=== PATIENT | female | born 1995 | race Caucasian/White ===

== ENCOUNTER → 2017-02-20 | Outpatient (CLI) | payer BC ==
[~2017-02-20] MED LIST: BCPILLS PO; MULT-506 PO; ONDA4TAB46 PO; SUMA25TA12 PO
--- NOTE | 2017-02-20 10:07 | DIAGNOSTIC IMAGING REPORT ---
Thyroid ultrasonography CLINICAL HISTORY: R94.6 Abnormal thyroid blood test solitary left lobe thyroid nodule COMPARISON STUDY: 02/23/2016 FINDINGS: The right lobe of the thyroid measures 5.3 x 1.2 x 1.4 cm. The left lobe measures 8.0 x 1.7 x 1.0 cm. Both lobes of thyroid are slightly hypervascular. There is a stable isoechoic wider than tall circumscribed lower pole left lobe nodule measuring 12 mm in long axis. IMPRESSION: No change in the size the 12 mm lower pole left lobe thyroid nodule. Electronically signed by: Jose Casper M.D. 02/20/2017 10:06 AM Dictated Date/Time: 02/20/2017 10:04 AM
== END | disposition home or self-care (01) ==
LOC: C.ULTR 09:41
PROVIDERS: ATTEND Physician Assistant
DX: R94.6 Abnormal results of thyroid function studies (principal)

== ENCOUNTER → 2017-11-22 | Outpatient (CLI) | payer OTHER | END | disposition home or self-care (01) | LOC: C.LAB1850 10:59 | PROVIDERS: ATTEND Physician Assistant | DX: E03.9 Hypothyroidism, unspecified (principal) ==

== ENCOUNTER → 2018-01-05 | Outpatient (CLI) | payer OTHER | LOC: C.LAB1850 16:07 | PROVIDERS: ATTEND Internal Medicine Endocrinology, Diabetes & Metabolism | DX: E03.9 Hypothyroidism, unspecified (principal) ==

== ENCOUNTER → 2018-01-24 | Outpatient (CLI) | payer OTHER | END | disposition home or self-care (01) | LOC: C.PAPS 11:35 | PROVIDERS: ATTEND Obstetrics & Gynecology | DX: Z12.4 Encounter for screening for malignant neoplasm of cervix (principal) ==

== ENCOUNTER → 2018-01-24 | Outpatient (CLI) | payer OTHER | END | disposition home or self-care (01) | LOC: C.LABSPEC 10:56 | PROVIDERS: ATTEND Obstetrics & Gynecology | DX: Z11.3 Encounter for screening for infections with a predominantly sexual mode of transmission (principal) ==

== ENCOUNTER → 2018-01-27 | Outpatient (CLI) | payer OTHER | END | disposition home or self-care (01) | LOC: C.LAB1850 08:18 | PROVIDERS: ATTEND Obstetrics & Gynecology | DX: N91.2 Amenorrhea, unspecified (principal) ==

== ENCOUNTER 2019-04-26 03:59 | Inpatient (IN) ==
[2019-04-26] MEDS ORDERED: OXYTOCIN 30 UNITS/500 ML BAG IV PRN ×3 (06:36→21:44)
[2019-04-26] MEDS ORDERED: PENICILLIN G POTASSIUM 6 MU in DEXTROSE 5% 250 ML IV STA (06:36)
--- NOTE | 2019-04-26 06:52 | History & Physical Report ---
Date of Service April 26, 2019 Assessment & Plan (1) Normal labor: I think she has demonstrated change consistent with early labor. Fetus reassuring. admit. Expectant management. (2) Group beta Strep positive: pcn History of Present Illness Chief Complaint: Patient is a 23yowf wtih iup at 39 6/7 weeks who presents to labor and delivery complaining of contractions. no lof/vb. +fm. GBS positive. complicated by hypothroidism. labs--A+/ab-/ pap nl/ri/rpr nr/hepb-/hiv-/gc/ct-/neg panormam, neg aftp/gtt x 2 nl/gbs positive Primary Care Provider: Nahum Sotomayor MD Allergies Allergy/AdvReac Type Severity Reaction Status Date / Time No Known Allergies Allergy Mild Verified 04/24/19 19:57 Home Medications Home Medications Medication Instructions Recorded Confirmed Type levothyroxine 88 mcg tablet 88 mcg PO .TAKE 1 TABLET DAILY 04/12/19 04/26/19 History #30 tab -ifdh fum-folic ac-om3 75 tab PO DAILY 04/12/19 04/26/19 History Patient History Social History Preferred Language: [place] Citizen Communication Ability: Effective 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 Beliefs That Will Affect Care: None marital status: Current Living Situation: Spouse Current Living Situation Comment: house with Other Information That Helps Us Care for You: No Feels Safe at Home: Yes Safety Concerns: Feels Safe At This Time Smoking Status: Never smoker Tobacco Type: cigarettes ; Do You Dip or Chew Tobacco: No ; Second Hand Exposure: No ; Hx Alcohol Use: No Hx Substance Use: No OB History g 1 present Review of Systems All systems reviewed & are unremarkable except as noted in HPI & below Physical Exam Constitutional: WD/WN, vitals as above Gastrointestinal (Abdomen): soft, gravid, nt Genitourinary: cx was 1/80/-3 in the office and made change from 2/90/-2 to 3+/90/-2 toco--q 3-5 min efm--120s with mod variability, accels to 160s, no decels Results & Data Vital Signs (Past 12 Hours) Vital Signs Temp Pulse Resp BP 04/26/19 05:28 82 117/66 04/26/19 04:22 78 112/68 04/26/19 04:17 36.9 C 78 18 112/68
[2019-04-26 07:12] LABS: Hematocrit (blood only) 35.4 % (37-47); Hemoglobin 12.3 g/dL (12.0-16.0); Mean Corpuscular Hgb Conc 34.7 g/dL (32-36); Mean Platelet Volume 9.3 fL (7.4-10.4); Platelet Count 239 K/uL (130-400); RDW Coefficient of Variation 13.8 % (11.5-14.5); RDW Standard Deviation 45.4 fL (36.4-46.3); Red Blood Count 3.89 M/uL (4.2-5.4); White Blood Count 10.82 K/uL (4.8-10.8)
[2019-04-26] MEDS: LEVOTHYROXINE SODIUM 88 MCG TABLET PO SCH (07:31)
[2019-04-26] MEDS: LACTATED RINGER'S 1,000 ML IV PRN ×3 (07:35→13:47)
--- NOTE | 2019-04-26 09:40 | Labor Progress Brief Note ---
Date of Service April 26, 2019 Subjective Late entry, feeling some ctx. Assessment & Plan (1) Encounter for supervision of normal first : (2) Group beta Strep positive: will see how arom helps labor pattern, intermittent monitoring. c/w pcn. categ 1 Physical Exam Constitutional: WD/WN, vitals as above Genitourinary: Manual OB Exam: + cervical dilation 4 cm, + cervical effacement 100%, + station -2 and + amniotic fluid (AROM) clear OB Exam Monitor Tracing: + external FHT monitor used, + external uterine monitor used (q5), + category I and + normal FHT variability Results & Data Vital Signs (Past 12 Hours) Vital Signs Temp Pulse Resp BP 04/26/19 09:09 99.0 F 81 20 112/60 04/26/19 06:59 99.0 F 84 20 119/72 04/26/19 05:28 82 117/66 04/26/19 04:22 78 112/68 04/26/19 04:17 98.4 F 78 18 112/68
[2019-04-26] MEDS: PENICILLIN G POTASSIUM 3 MU in DEXTROSE 5% 100 ML IV PRN ×3 (11:20→19:05)
--- NOTE | 2019-04-26 12:26 | Labor Progress Brief Note ---
Date of Service April 26, 2019 Subjective Reason For Note: Routine Evaluation feeling some stronger ctx. Assessment & Plan (1) Encounter for supervision of normal first : (2) Group beta Strep positive: c/w pcn. no evid of progress in labor. rec pitocin. pt agrees. Physical Exam Constitutional: WD/WN, vitals as above Genitourinary: Manual OB Exam: + cervical dilation (no change. ) OB Exam Monitor Tracing: + external FHT monitor used (130 mod variability, reactive ), + external uterine monitor used (q3) and + category I Results & Data Vital Signs (Past 12 Hours) Vital Signs Temp Pulse Resp BP 04/26/19 10:59 98.6 F 80 20 123/77 04/26/19 09:09 99.0 F 81 20 112/60 04/26/19 06:59 99.0 F 84 20 119/72 04/26/19 05:28 82 117/66 04/26/19 04:22 78 112/68 04/26/19 04:17 98.4 F 78 18 112/68
[2019-04-26] MEDS ORDERED: ePHEDrine sulfate 50 MG/ML AMP ONE (13:11)
[2019-04-26] MEDS ORDERED: BUPIVACAINE 0.25% 30 ML VIAL ONE (13:11)
[2019-04-26] MEDS ORDERED: fentaNYL 2MCG/ML ROPIV 1.25MG/ML 100 ML BAG EPI ONE (13:12)
[2019-04-26] MEDS ORDERED: fentaNYL citrate 100 MCG/2 ML VIAL ONE (13:12)
[2019-04-26] MEDS ORDERED: NALOXONE HCL 0.4 MG/1 ML VIAL/CARP IV PRN (13:43)
[2019-04-26] MEDS ORDERED: DiphenhydrAMINE HCL 50 MG/ML VIAL IV PRN (13:43)
[2019-04-26] MEDS ORDERED: ONDANSETRON INJ 2 MG/ML 2 ML VIAL IV PRN (13:43)
[2019-04-26] MEDS ORDERED: NALBUPHINE HCL INJ 10 MG/ML AMP IV PRN (13:43)
[2019-04-26] MEDS ORDERED: ePHEDrine sulfate 50 MG/ML AMP IV PRN (13:43)
[2019-04-26] MEDS ORDERED: fentaNYL 2MCG/ML ROPIV 1.25MG/ML 100 ML BAG EPI PRN (13:43)
[2019-04-26] MEDS ORDERED: NALOXONE HCL 1 MG in SODIUM CHLORIDE 0.9% 1000ML 1,000 ML IV PRN (13:43)
--- NOTE | 2019-04-26 13:47 | Anesthesiology Consultation ---
Date of Service April 26, 2019 Assessment & Plan Chart Review Chart Review: Patient NOT seen in Pre Admission Testing and Acceptable Risk for Labor Epidural Consults Requested none ASA ASA2 Proposed Anesthesia Anesthesia Type: Labor Epidural and CSE Risk / Benefits Reviewed With: PT / POA / Parent / Guardian, Accepts Plan and Informed Consent Obtained History Height/Weight Height: 5 ft 2 in Weight: 85.488 kg Allergies Allergy/AdvReac Type Severity Reaction Status Date / Time No Known Allergies Allergy Mild Verified 04/24/19 19:57 Medications Home Medications Medication Instructions Recorded Confirmed Last Taken levothyroxine 88 mcg tablet 88 mcg PO .TAKE 1 TABLET DAILY 04/12/19 04/26/19 04/25/19 06:00 #30 tab -utml fum-folic ac-om3 75 tab PO DAILY 04/12/19 04/26/19 04/25/19 21:00 Active Medications Generic Name Dose Route Start Last Admin Trade Name Freq PRN Reason Stop Dose Admin Lactated Ringer's 1,000 mls @ 125 mls/hr 04/26/19 06:36 04/26/19 13:09 Lr IV 04/28/19 06:35 999 mls/hr .Q8H PRN Administration L&D Protocol Protocol Penicillin G Potassium 3 mu/ 106 mls @ 100 mls/hr 04/26/19 06:36 04/26/19 11:20 Dextrose IV 04/27/19 06:35 100 mls/hr Q4H PRN Administration Give until delivery Oxytocin 30 units in 500 mls @ 3 mls/hr 04/26/19 12:26 04/26/19 13:09 Pitocin IV 04/28/19 12:25 0.18 units/hr .Q24H PRN 3 mls/hr Labor Induction/Augmentation Titration Protocol 0.18 UNITS/HR Levothyroxine Sodium 88 mcg 04/26/19 07:30 04/26/19 07:31 Synthroid PO 05/26/19 07:29 88 mcg DAILYBB ERICA Administration NPO Date Last Intake of Fluids: 04/26/19 Time Last Intake of Fluids: 10:00 Date Last Intake of Solids: 04/25/19 Time Last Intake of Solids: 19:30 Past Medical History Medical History Depression with anxiety no meds Jacqueline's thyroiditis taking levothyroxine 88mcg daily Exercise / Class Metabolic Activity II 4-5 Yardwork/Stairs/Walk up hill Past Family History Family History Father Asthma Brother Asthma Grandmother (Paternal) Breast cancer Ovarian cancer Grandfather (Paternal) Colorectal cancer Mother Hypothyroidism Goiter and Thyroid Nodule Past Surgical History Surgical History S/P wisdom tooth extraction at age 15 Past Anesthesia History No Hx of Anesthesia Complications and No Family Hx of Anesthesia Complications History of PONV No Hx of PONV and No Hx of Motion Sickness Social History Smoking Status: Never smoker tobacco type: cigarettes Do You Dip or Chew Tobacco: No Hx Alcohol Use: No Hx Substance Use: No substance use type: does not use Review of Systems no chest pain or sob Physical Exam Vital Signs Last Vital Signs Temp 36.9 C 04/26/19 13:39 Pulse 90 04/26/19 13:39 Resp 20 04/26/19 13:39 BP 127/77 04/26/19 13:39 Pulse Ox 99 04/26/19 13:39 ENMT Mouth: no TMJ abnormality Thyromental Distance: > or= 3.5 Finger Breadths Mallampati Class: II Neck normal visual inspection Respiratory normal respiratory effort Auscultation: lungs clear to auscultation bilaterally Cardiovascular Rate/Rhythm: regular rate and regular rhythm Musculoskeletal Spine: normal cervical ROM Neurologic moves all extremities Psychiatric Orientation: alert and oriented x 3 Testing Laboratory Results 04/26/19 07:01
--- NOTE | 2019-04-26 15:28 | Labor Progress Brief Note ---
Date of Service April 26, 2019 Subjective Reason For Note: Requested By RN pt feels increased pain. pit at 5, ctx getting more regular. Assessment & Plan (1) Normal labor: (2) Group beta Strep positive: begin 2nd stage. pcn for gbs. categ 1 fhts. Physical Exam Constitutional: WD/WN, vitals as above Genitourinary: Manual OB Exam: + cervical dilation 10 cm, + cervical effacement 100% and + station + 2 OB Exam Monitor Tracing: + external FHT monitor used (115 mod variability, early decels), + external uterine monitor used (q3) and + category I Results & Data Vital Signs (Past 12 Hours) Vital Signs Temp Pulse Resp BP Pulse Ox 04/26/19 15:24 76 99 04/26/19 15:19 55 L 117/65 96 04/26/19 15:14 68 97 04/26/19 15:10 63 94 04/26/19 15:09 60 96 04/26/19 15:05 66 107/57 L 04/26/19 15:04 65 96 04/26/19 14:59 71 96 04/26/19 14:54 61 98 04/26/19 14:49 68 104/57 L 96 04/26/19 14:44 58 L 96 04/26/19 14:39 62 96 04/26/19 14:34 67 112/57 L 98 04/26/19 14:32 67 105/50 L 04/26/19 14:30 20 04/26/19 14:29 67 96 04/26/19 14:25 70 105/53 L 04/26/19 14:24 75 96 04/26/19 14:19 77 114/57 L 96 04/26/19 14:17 75 112/57 L 04/26/19 14:15 76 20 108/55 L 04/26/19 14:14 78 97 04/26/19 14:13 83 103/59 L 04/26/19 14:11 98.4 F 80 98/54 L 04/26/19 14:10 18 04/26/19 14:09 88 96 04/26/19 14:04 83 96 04/26/19 14:01 68 20 111/64 04/26/19 13:59 71 98 04/26/19 13:54 80 99 04/26/19 13:49 85 100 04/26/19 13:44 78 98 04/26/19 13:39 98.4 F 90 20 127/77 99 04/26/19 13:04 81 120/85 04/26/19 12:25 99.0 F 74 20 120/70 04/26/19 10:59 98.6 F 80 20 123/77 04/26/19 09:09 99.0 F 81 20 112/60 04/26/19 06:59 99.0 F 84 20 119/72 04/26/19 05:28 82 117/66 04/26/19 04:22 78 112/68 04/26/19 04:17 98.4 F 78 18 112/68
[2019-04-26] MEDS ORDERED: ACETAMINOPHEN 325 MG TAB PO PRN (21:44)
[2019-04-26] MEDS ORDERED: HYDROCORTISONE ACETATE 25 MG SUPP PR PRN (21:44)
[2019-04-26] MEDS ORDERED: BISACODYL 10 MG SUPP PR PRN (21:44)
[2019-04-26] MEDS ORDERED: DIPHTHERIA/TETANUS/PERTUSSIS 0.5 ML SYR/VIAL IM ONE (21:44)
[2019-04-26] MEDS ORDERED: SUPERCREAM 0.870% 15 GM JAR EXT PRN (21:44)
[2019-04-26] MEDS ORDERED: BENZOCAINE 20% AER SPR 82.5 GM CAN EXT PRN (21:44)
[2019-04-26 21:48] LABS: Base Excess Cord Venous Blood -5.8 mEq/L (-7.7-1.9); Cord Venous Blood HCO3 19 mmol/L (18.4-26.8); Cord Venous Blood PCO2 35 mmHg (30.4-57.2); Cord Venous Blood PO2 32 mmHg (14.1-43.3); Cord Venous Blood pH 7.35 (7.20-7.44)
[2019-04-26] MEDS ORDERED: IBUPROFEN 600 MG TAB PO ONE (21:54)
--- NOTE | 2019-04-26 22:44 | Delivery Summary ---
DATE OF OPERATION: 04/26/2019 PROCEDURE: Normal spontaneous vaginal delivery with right vaginal sidewall laceration repair. SURGEON: Amol Pardo MD. PREOPERATIVE DIAGNOSES: 1. Single intrauterine at 39 weeks 6 days gestational age. 2. Group B Streptococcus positive. 3. Hypothyroidism. 4. Labor. POSTOPERATIVE DIAGNOSES: 1. Single intrauterine at 39 weeks 6 days gestational age. 2. Group B Streptococcus positive. 3. Hypothyroidism. 4. Labor. 5. Status post delivery. 6. Meconium stained fluid. ESTIMATED BLOOD LOSS: 400 mL. COMPLICATIONS: None. FINDINGS: A viable male infant with weight and Apgars pending. FLUIDS: Continuous lactated Ringer's. URINE OUTPUT: Not measured. INDICATIONS: Yue is a 23-year-old G1, P0, admitted at 39 weeks 6 days gestational age in labor. The patient was GBS positive. The patient initially presented in labor at 2 cm dilated, 90% effaced, -2 station. She progressed to 3 cm dilated, 90% effaced, -2 station, was admitted for labor. On reevaluation several hours later, the patient was noted to be 4 cm dilated, 100% effaced, -2 station. She underwent artificial rupture of membranes at that time. The patient continued to progress in labor and on reevaluation, was noted to have no cervical change and was started on oxytocin per regular protocol. The patient continued to progress in labor and over time progressed to complete-complete +2 station. The patient labored down for approximately 1 hour, at which time she began to push and pushed for approximately 3 hours to achieve delivery. DELIVERY NOTE: The patient progressed to 10 cm dilated, 100% effaced, +2 station, pushed over an intact perineum with epidural anesthesia and delivered a viable male with weight and Apgars pending. Head of the delivered in DANISH position, rest into right transverse. Bicorn was noted. On attempt to deliver the shoulder, the shoulder did not initially deliver, but did deliver without any significant shoulder dystocia. Remainder of the body progressed slowly through maternal pushing secondary to size. There was noted to be meconium-stained fluid at the time of delivery. The baby was noted to be floppy soon after delivery and the cord was immediately clamped and cut and the delivered to the pediatric team for evaluation. Attention was then turned to the mom. Cord segment and cord blood was obtained. Attention was then turned to deliver the placenta, which was delivered intact, 3-vessel cord, with gentle cord traction. On inspection of vagina, perineum and cervix, there was noted to be a right vaginal laceration, which was repaired with 3-[address] continuous running stitch and there was noted to be a right labia, which repaired with interrupted stitch of 3-0 Vicryl on a SH. Needle, sponge and instrument counts were correct at the completion of the case with mother and stable in immediate post-delivery period. I attest to the content of the Intraoperative Record and any orders documented therein. Any exception s are noted below.
--- NOTE | 2019-04-27 00:05 | Anesthesia Procedure Note ---
Date of Service April 27, 2019 Anesthesia Post Epidural Note Vital Signs Vital Signs: Temp Pulse Resp BP Pulse Ox 37.9 C H 100 H 18 108/60 97 04/26/19 21:04 04/27/19 00:04 04/26/19 23:34 04/27/19 00:04 04/26/19 20:44 Pain Intensity Bilateral Abdomen: Pain Intensity: 0 Head: Pain Intensity: 3 Notes Mental Status: alert / awake / arousable and participated in evaluation Nausea / Vomiting: adequately controlled Pain: adequately controlled Airway Patency, RR, SpO2: stable & adequate BP & HR: stable & adequate Hydration State: stable & adequate Neuraxial Anesthesia: was administered and sensory block is resolving Anesthetic Complications: no major complications apparent and Pt Satisfied with anesthetic care Epidural: Removed without complications and With tip intact
[2019-04-27] MEDS: LEVOTHYROXINE SODIUM 88 MCG TABLET PO SCH (07:11)
[2019-04-27 07:35] LABS: Hematocrit (blood only) 29.2 % (37-47); Hemoglobin 10.2 g/dL (12.0-16.0); Mean Corpuscular Hgb Conc 34.9 g/dL (32-36); Mean Corpuscular Volume 91.3 fL (80-100); Mean Platelet Volume 9.4 fL (7.4-10.4); Platelet Count 210 K/uL (130-400); RDW Coefficient of Variation 13.7 % (11.5-14.5); RDW Standard Deviation 45.9 fL (36.4-46.3); White Blood Count 15.83 K/uL (4.8-10.8)
--- NOTE | 2019-04-27 07:49 | Obstetrical Progress Note ---
Date of Service <Vanda Jackson MD - Last Filed: 04/27/19 07:49> April 27, 2019 Assessment & Plan <Vanda Jackson MD - Last Filed: 04/27/19 07:49> (1) Group beta Strep positive: (2) Hypothyroid in , antepartum: (3) Encounter for care and examination after delivery: PPD1 after on 04/26. complicated by GBS+ status and hypothyroidism (jocy's). Encouraged ambulation. Currently on normal diet, tolerating well. Some burning on urination. Improving well. Will continue to monitor vitals, labs, consider discharge tomorrow if still improving and having no issues. Subjective <Vanda Jackson MD - Last Filed: 04/27/19 07:49> Ambulation: ambulating normally (not yet ambulating) Voiding: no voiding problems Passing Gas:: Yes Diet Tolerance:: regular diet Feeding Type:: breast feeding Current Pain Level(1-10): 3 No passing gas, BM yet. Hasn't ambulated outside of room. Constitutional: + fatigue; no fever and no chills Respiratory: no cough and no dyspnea No shortness of breath Cardiovascular: + edema; no chest pain, no syncope and no calf pain Breast: no breast pain Gastrointestinal: + cramping; no abdominal pain, no nausea, no vomiting, no constipation and no diarrhea/loose stools Genitourinary (female): + dysuria; no difficulty urinating Neurologic: no headache(s) Physical Exam <Vanda Jackson MD - Last Filed: 04/27/19 07:49> Constitutional well developed and well nourished Respiratory normal respiratory effort; no respiratory distress, no labored breathing and no cough Auscultation: no crackles, no rales, no rhonchi and no wheezes Cardiovascular Rate/Rhythm: regular rate and regular rhythm Heart Sounds: no gallop, no murmur and no cardiac rub Extremities: + pedal edema Gastrointestinal (Abdomen) Inspection/Auscultation: + abdomen distended and normal bowel sounds Percussion/Palpation: + abdomen tender and abdomen soft; no guarding Genitourinary Uterus firm, palpable at umbilicus, some tenderness to palpation. Results & Data <Vanda Jackson MD - Last Filed: 04/27/19 07:49> Vital Signs (Past 12 Hours) Vital Signs Temp Pulse Pulse Resp BP BP Pulse Ox 04/27/19 04:50 37.1 C 71 16 96/57 L 97 04/27/19 00:30 37.1 C 83 18 106/67 96 04/27/19 00:04 100 H 108/60 04/26/19 23:49 101/60 04/26/19 23:34 96 H 18 104/58 L 04/26/19 23:19 101 H 109/59 L 04/26/19 23:04 96 H 107/59 L 04/26/19 22:49 86 113/59 L 04/26/19 22:34 77 20 116/56 L 04/26/19 22:19 99 H 119/55 L 04/26/19 22:04 86 20 118/59 L 04/26/19 21:49 96 H 20 124/63 04/26/19 21:35 92 H 103/55 L 04/26/19 21:34 20 04/26/19 21:19 89 20 108/63 04/26/19 21:04 37.9 C H 69 20 102/58 L 04/26/19 20:49 96 H 100/54 L 04/26/19 20:44 98 H 97 04/26/19 20:39 125 H 97 04/26/19 20:38 93 H 85 L 04/26/19 20:34 143 H 93 04/26/19 20:30 20 04/26/19 20:29 126 H 89 L 04/26/19 20:24 113 H 95 04/26/19 20:21 123 H 111/59 L 04/26/19 20:19 119 H 92 04/26/19 20:15 122 H 84 L 04/26/19 20:14 126 H 95 04/26/19 20:09 127 H 85 L 04/26/19 20:06 116 H 113/53 L 04/26/19 20:04 122 H 89 L 04/26/19 20:00 38.5 C H 22 04/26/19 19:59 137 H 94 04/26/19 19:57 119 H 89 L 04/26/19 19:54 118 H 96 04/26/19 19:52 126 H 85 L 04/26/19 19:50 129 H 112/56 L 04/26/19 19:49 124 H 84 L 04/26/19 19:46 120 H 94 <Amol Pardo MD - Last Filed: 04/27/19 08:52> Co-Signing Physician Notes Patient seen and evaluated and agree with the above findings and plan. Routine care
[2019-04-27] MEDS: IBUPROFEN 600 MG TAB PO PRN ×2 (09:20→19:29)
[2019-04-27] MEDS: DOCUSATE SODIUM 100 MG CAP PO SCH ×2 (09:20→19:29)
[2019-04-27] MEDS: PRENATAL VITAMIN 1 TAB PO SCH (09:20)
[2019-04-27] MEDS ORDERED: BISACODYL 5 MG TABEC PO SCH (20:00)
--- NOTE | 2019-04-28 05:15 | Obstetrical Progress Note ---
Date of Service April 28, 2019 Assessment & Plan (1) Encounter for care and examination after delivery: stable, routine care. f/u 6 wks pp check, instructions reviewed. Day #:: 2 Subjective Ambulation: ambulating normally Voiding: no voiding problems Diet Tolerance:: regular diet Lochia:: Small Feeding Type:: breast feeding denies pain, no complaints. trying to get used to nursing Physical Exam Constitutional WD/WN, vitals as above Respiratory normal respiratory effort, lungs clear to auscultation Cardiovascular Rate/Rhythm: regular rate and regular rhythm Gastrointestinal (Abdomen) Inspection/Auscultation: abdomen normal to inspection Percussion/Palpation: abdomen soft fundus firm 2 cm below umbilicus Musculoskeletal nt calves. Neurologic grossly normal Psychiatric A+Ox3, euthymic affect Results & Data Vital Signs (Past 12 Hours) Vital Signs Temp Pulse Resp BP Pulse Ox 04/27/19 23:10 97.9 F 63 16 107/66 98 04/27/19 19:35 98.6 F 91 H 18 112/70 97
[2019-04-28 06:13] LABS: Hematocrit (blood only) 26.5 % (37-47); Hemoglobin 9.1 g/dL (12.0-16.0)
[2019-04-28] MEDS: LEVOTHYROXINE SODIUM 88 MCG TABLET PO SCH (06:30)
[2019-04-28] MEDS: DOCUSATE SODIUM 100 MG CAP PO SCH (08:36)
[2019-04-28] MEDS: IBUPROFEN 600 MG TAB PO PRN (08:36)
[2019-04-28] MEDS: PRENATAL VITAMIN 1 TAB PO SCH (08:36)
== END 2019-04-28 14:30 | disposition home or self-care (01) | DRG 807 ==
LOC: OPB 03:59 → 4S1 04:02 → 4S2 04-27 01:06

== ENCOUNTER 2021-04-11 03:53 | Inpatient (IN) ==
[2021-04-11] MEDS ORDERED: OXYTOCIN 30 UNITS/500 ML BAG IV PRN ×2 (04:18→11:02)
[2021-04-11] MEDS: LACTATED RINGER'S 1,000 ML IV PRN ×2 (04:30→05:43)
[2021-04-11] MEDS ORDERED: SODIUM CHLORIDE 0.9% INJ 10 ML VIAL ONE (04:36)
[2021-04-11] MEDS ORDERED: BUPIVACAINE 0.25% 30 ML VIAL ONE (04:36)
[2021-04-11] MEDS ORDERED: ePHEDrine sulfate 50 MG/ML AMP ONE (04:36)
[2021-04-11] MEDS ORDERED: fentaNYL citrate 100 MCG/2 ML VIAL ONE (04:37)
[2021-04-11] MEDS ORDERED: fentaNYL 2MCG/ML ROPIVACAINE 1.25MG/ML 100 ML BAG EPI ONE (04:37)
[2021-04-11 04:40] LABS: Hematocrit (blood only) 37.3 % (37-47); Hemoglobin 12.7 g/dL (12.0-16.0); Mean Corpuscular Hemoglobin 31.8 pg (25-34); Mean Corpuscular Volume 93.3 fL (80-100); Mean Platelet Volume 8.7 fL (7.4-10.4); Platelet Count 326 K/uL (130-400); RDW Coefficient of Variation 13.5 % (11.5-14.5); RDW Standard Deviation 46.3 fL (36.4-46.3); White Blood Count 11.68 K/uL (4.8-10.8)
[2021-04-11] MEDS ORDERED: fentaNYL 2MCG/ML ROPIVACAINE 1.25MG/ML 100 ML BAG EPI PRN (05:38)
[2021-04-11] MEDS ORDERED: NALOXONE HCL 0.4 MG/1 ML VIAL/CARP IV PRN (05:38)
[2021-04-11] MEDS ORDERED: diphenhydrAMINE 50 MG/ML VIAL IV PRN (05:38)
[2021-04-11] MEDS ORDERED: NALOXONE HCL 1 MG in SODIUM CHLORIDE 0.9% 1000ML 1,000 ML IV PRN (05:38)
[2021-04-11] MEDS ORDERED: ePHEDrine sulfate 50 MG/ML AMP IV PRN (05:38)
[2021-04-11] MEDS ORDERED: NALBUPHINE HCL INJ 10 MG/ML AMP IV PRN (05:38)
--- NOTE | 2021-04-11 05:38 | Anesthesiology Consultation ---
Date of Service April 11, 2021 Assessment & Plan (1) Encounter for pre-operative examination: Chart Review Chart Review: Patient NOT seen in Pre Admission Testing and Acceptable Risk for Labor Epidural Consults Requested none ASA ASA2 Proposed Anesthesia Anesthesia Type: Labor Epidural Risk / Benefits Reviewed With: PT / POA / Parent / Guardian, Accepts Plan and Informed Consent Obtained History Height/Weight Height: 5 ft 3 in Weight: 78.925 kg Allergies Allergy/AdvReac Type Severity Reaction Status Date / Time No Known Allergies Allergy Mild Verified 04/05/21 08:54 Medications Home Medications Medication Instructions Recorded Confirmed Last Taken docusate sodium 100 mg capsule 100 mg PO PM 02/16/21 04/11/21 04/10/21 (Colace) psyllium husk 0.52 gram capsule 0.52 g PO QDL cap 02/16/21 04/11/21 04/10/21 (Metamucil) levothyroxine 88 mcg tablet 88 mcg PO QAM 03/08/21 04/11/21 04/10/21 breast pump #1 ea 03/09/21 04/05/21 Unknown vits,calcium 91-iron 28 1 pkg PO 04/11/21 04/10/21 mg-folic 975 mcg-dha 200 mg oral pack ( + DHA) Active Medications Generic Name Dose Route Start Last Admin Trade Name Freq PRN Reason Stop Dose Admin Lactated Ringer's 1,000 mls @ 125 mls/hr 04/11/21 04:18 04/11/21 04:30 Lr IV 04/13/21 04:17 999 mls/hr .Q8H PRN Administration L&D Protocol Protocol Past Medical History Medical History Depression with anxiety no meds Group beta Strep positive Jacqueline's thyroiditis taking levothyroxine 88mcg daily Exercise / Class Metabolic Activity II 4-5 Yardwork/Stairs/Walk up hill Past Family History Family History Father Asthma Brother Asthma Grandmother (Paternal) Breast cancer Ovarian cancer Grandfather (Paternal) Colorectal cancer Mother Hypothyroidism Goiter and Thyroid Nodule Past Surgical History Surgical History S/P wisdom tooth extraction at age 15 Past Anesthesia History No Hx of Anesthesia Complications and No Family Hx of Anesthesia Complications History of PONV No Hx of PONV and No Hx of Motion Sickness Social History Smoking Status: Never smoker tobacco type: cigarettes Hx Alcohol Use: No Hx Substance Use: No substance use type: does not use Physical Exam Vital Signs Last Vital Signs Temp 36.7 C 04/11/21 04:13 Pulse 83 04/11/21 05:37 Resp 18 04/11/21 04:13 BP 108/62 04/11/21 05:37 Pulse Ox 92 04/11/21 05:32 ENMT Mouth: no dentition abnormality Thyromental Distance: > or= 3.5 Finger Breadths Mallampati Class: II Neck normal visual inspection Respiratory normal respiratory effort Auscultation: lungs clear to auscultation bilaterally Cardiovascular Rate/Rhythm: regular rate and regular rhythm Psychiatric Orientation: alert Testing Laboratory Results 04/11/21 04:33
[2021-04-11] MEDS ORDERED: ONDANSETRON INJ 2 MG/ML 2 ML VIAL IV PRN ×2 (07:06→07:07)
[2021-04-11] MEDS ORDERED: ONDANSETRON INJ 2 MG/ML 2 ML VIAL ONE (07:07)
--- NOTE | 2021-04-11 10:58 | Delivery Summary ---
Vaginal Delivery Summary Date of Service April 11, 2021 Vaginal Delivery Summary and 2nd Degree LAC Patient presented in labor requested epidural heart rate category 1 she progressed to fully dilated artificial rupture of membranes was performed for clear fluid she pushed a baby in occiput posterior position on delivery fluid was clear no nuchal cord mouth and nares suctioned baby was delivered with gentle traction no excessive force live vigorous female cord blood o btained placenta removed with gentle traction IV Pitocin started second-degree tear repaired with 3-0 Vicryl estimated blood loss 250 milliliters [facility] Vaginal Delivery Charge Vaginal Delivery Codes: 61222 global code for the antepartum, delivery, and post- Delivery Type Details: and 2nd Degree LAC
[2021-04-11] MEDS ORDERED: DIPHTHERIA/TETANUS/PERTUSSIS 0.5 ML SYR/VIAL IM ONE (11:02)
[2021-04-11] MEDS ORDERED: SUPERCREAM 0.870% 15 GM JAR EXT PRN (11:02)
[2021-04-11] MEDS ORDERED: bisacodyL 10 MG SUPP PR PRN (11:02)
[2021-04-11] MEDS ORDERED: ACETAMINOPHEN 325 MG TAB PO PRN (11:02)
[2021-04-11] MEDS ORDERED: BENZOCAINE 20% AER SPR 82.5 GM CAN EXT PRN (11:02)
[2021-04-11] MEDS ORDERED: HYDROCORTISONE ACETATE 25 MG SUPP PR PRN (11:02)
[2021-04-11] MEDS ORDERED: oxyCODONE/ACETAMINOPHEN 5mg/325mg TAB PO PRN (11:02)
[2021-04-11] MEDS: IBUPROFEN 600 MG TAB PO PRN ×2 (12:02→19:40)
--- NOTE | 2021-04-11 12:05 | Anesthesiology Progress Note ---
Date of Service April 11, 2021 Anesthesia Post Procedure Vital Signs Vital Signs: Temp Pulse Resp BP Pulse Ox 04/11/21 12:04 88 105/56 L 04/11/21 11:49 96 H 117/71 04/11/21 11:34 91 H 18 98/61 L 04/11/21 11:19 90 18 102/57 L 04/11/21 11:08 88 18 98/56 L 04/11/21 10:49 36.7 C 90 18 102/56 L 04/11/21 10:40 102 H 107/59 L 04/11/21 10:33 116 H 92 04/11/21 10:28 127 H 91 04/11/21 10:24 94 H 89 L 04/11/21 10:23 98 H 92 04/11/21 10:18 112 H 86 L 04/11/21 10:13 88 92 04/11/21 10:12 86 87 L 04/11/21 10:10 90 98/53 L 04/11/21 10:08 91 H 91 04/11/21 10:03 72 91 04/11/21 10:00 20 04/11/21 09:58 106 H 92 04/11/21 09:56 95 H 100/56 L 88 L 04/11/21 09:53 96 H 88 L 04/11/21 09:49 81 87 L 04/11/21 09:48 92 H 91 04/11/21 09:44 82 81 L 04/11/21 09:43 88 93 04/11/21 09:39 82 104/56 L 04/11/21 09:38 76 94 04/11/21 09:37 71 86 L 04/11/21 09:33 103 H 93 04/11/21 09:31 97 H 85 L 04/11/21 09:28 71 93 04/11/21 09:26 94 H 108/55 L 04/11/21 09:22 103 H 93 04/11/21 09:17 93 H 95 04/11/21 09:12 86 96 04/11/21 09:11 86 100/57 L 04/11/21 09:07 79 93 04/11/21 09:02 76 93 04/11/21 09:00 20 04/11/21 08:57 88 94 04/11/21 08:54 83 97/52 L 04/11/21 08:52 74 93 04/11/21 08:47 78 93 04/11/21 08:42 81 92 04/11/21 08:41 75 98/54 L 04/11/21 08:37 81 94 04/11/21 08:32 74 93 04/11/21 08:30 20 04/11/21 08:27 81 93 04/11/21 08:26 79 98/57 L 04/11/21 08:22 75 93 04/11/21 08:17 82 93 04/11/21 08:12 79 92 04/11/21 08:11 75 101/55 L 04/11/21 08:07 97 H 94 04/11/21 08:02 82 92 04/11/21 08:00 20 04/11/21 07:57 80 94 04/11/21 07:54 83 102/56 L 04/11/21 07:52 87 94 04/11/21 07:47 80 94 04/11/21 07:42 87 95 04/11/21 07:41 90 108/61 04/11/21 07:37 88 94 04/11/21 07:32 91 H 95 04/11/21 07:30 20 04/11/21 07:27 96 H 94 04/11/21 07:25 97 H 101/60 04/11/21 07:22 94 H 94 04/11/21 07:17 81 95 04/11/21 07:15 37.0 C 18 04/11/21 07:12 91 H 94 04/11/21 07:09 106 H 107/55 L 04/11/21 07:07 102 H 95 04/11/21 07:02 93 H 95 04/11/21 06:57 93 H 94 04/11/21 06:55 99 H 112/60 04/11/21 06:52 113 H 95 04/11/21 06:47 89 94 04/11/21 06:42 115 H 93 04/11/21 06:40 88 101/63 04/11/21 06:37 106 H 93 04/11/21 06:32 103 H 93 04/11/21 06:27 119 H 95 04/11/21 06:24 112 H 105/68 04/11/21 06:22 97 H 94 04/11/21 06:17 96 H 93 07/25/21 06:12 95 H 93 04/11/21 06:10 104 H 102/65 04/11/21 06:07 69 94 04/11/21 06:02 81 95 04/11/21 05:57 88 96 04/11/21 05:54 78 100/63 04/11/21 05:52 82 92 04/11/21 05:50 85 110/57 L 04/11/21 05:47 83 93 04/11/21 05:45 82 111/57 L 04/11/21 05:42 82 94 04/11/21 05:39 84 107/61 04/11/21 05:37 90 108/62 91 04/11/21 05:35 85 108/61 04/11/21 05:33 83 103/60 04/11/21 05:32 88 92 04/11/21 05:31 80 107/56 L 04/11/21 05:29 84 108/61 04/11/21 05:27 82 115/66 94 04/11/21 05:25 90 115/66 04/11/21 05:22 95 H 95 04/11/21 05:17 91 H 92 04/11/21 05:16 90 119/66 04/11/21 04:13 36.7 C 101 H 18 115/69 04/11/21 04:10 36.7 C 101 H 18 115/69 Pain Intensity Head: Pain Intensity: 2 Transfer of Care Handoff Completed per policy Notes Mental Status: alert / awake / arousable Patient Amnestic to Procedure: Yes Nausea / Vomiting: adequately controlled Pain: adequately controlled Airway Patency, RR, SpO2: stable & adequate BP & HR: stable & adequate Hydration State: stable & adequate Anesthetic Complications: no major complications apparent and Pt Satisfied with anesthetic care
--- NOTE | 2021-04-11 12:06 | Anesthesia Procedure Note ---
Date of Service April 11, 2021 Anesthesia Post Epidural Note Vital Signs Vital Signs: Temp Pulse Resp BP Pulse Ox 36.7 C 88 18 105/56 L 92 04/11/21 10:49 04/11/21 12:04 04/11/21 11:34 04/11/21 12:04 04/11/21 10:33 Pain Intensity Head: Pain Intensity: 2 Notes Mental Status: alert / awake / arousable and participated in evaluation Nausea / Vomiting: adequately controlled Pain: adequately controlled Airway Patency, RR, SpO2: stable & adequate BP & HR: stable & adequate Hydration State: stable & adequate Neuraxial Anesthesia: was administered and sensory block is resolving Anesthetic Complications: no major complications apparent and Pt Satisfied with anesthetic care Epidural: Removed without complications and With tip intact
[2021-04-11] MEDS: DOCUSATE SODIUM 100 MG CAP PO SCH (22:02)
[2021-04-12] MEDS: IBUPROFEN 600 MG TAB PO PRN ×4 (01:24→18:43)
[2021-04-12] MEDS: LEVOTHYROXINE SODIUM 75 MCG TABLET PO SCH (06:28)
[2021-04-12] MEDS ORDERED: LEVOTHYROXINE SODIUM 88 MCG TABLET PO SCH (06:30)
[2021-04-12 06:44] LABS: Hematocrit (blood only) 28.5 % (37-47); Hemoglobin 9.5 g/dL (12.0-16.0); Mean Corpuscular Hemoglobin 30.7 pg (25-34); Mean Corpuscular Hgb Conc 33.3 g/dL (32-36); Mean Corpuscular Volume 92.2 fL (80-100); Mean Platelet Volume 8.7 fL (7.4-10.4); Platelet Count 274 K/uL (130-400); RDW Coefficient of Variation 13.7 % (11.5-14.5); RDW Standard Deviation 45.7 fL (36.4-46.3); Red Blood Count 3.09 M/uL (4.2-5.4); White Blood Count 11.15 K/uL (4.8-10.8)
--- NOTE | 2021-04-12 07:07 | Obstetrical Progress Note ---
Date of Service April 12, 2021 Assessment & Plan (1) Supervision of normal intrauterine in multigravida: day #1 patient is doing well her hemoglobin is 9.5 she has minimal bleeding she has no extremity pain continue current care Subjective Ambulation: ambulating normally Voiding: no voiding problems Passing Gas:: Yes Diet Tolerance:: regular diet Lochia:: Small Results & Data ([facility]) Vital Signs (Past 12 Hours) Vital Signs Temp Pulse Pulse Resp BP BP 04/12/21 03:50 97.5 F L 52 L 18 93/58 L 04/11/21 23:15 98.1 F 50 L 18 96/59 L 04/11/21 19:35 98.4 F 80 18 97/59 L
[2021-04-12] MEDS: PRENATAL VITAMIN 1 TAB PO SCH (08:23)
[2021-04-12] MEDS: DOCUSATE SODIUM 100 MG CAP PO SCH ×2 (08:23→21:30)
[2021-04-12] MEDS ORDERED: bisacodyL 5 MG TABEC PO ONE (10:54)
[2021-04-12] MEDS ORDERED: bisacodyL 5 MG TABEC PO SCH (20:00)
[2021-04-12 23:20] VITALS: TEMP 97.9
[2021-04-13] MEDS: IBUPROFEN 600 MG TAB PO PRN (05:55)
[2021-04-13] MEDS: LEVOTHYROXINE SODIUM 75 MCG TABLET PO SCH (06:31)
[2021-04-13 07:44] VITALS: BP 94/61; PULSE 76; O2SAT 98
--- NOTE | 2021-04-13 08:00 | Obstetrical Progress Note ---
Date of Service April 13, 2021 Assessment & Plan (1) Encounter for postoperative care: 25yo s/p . Doing well. Stable for discharge. Subjective Ambulation: ambulating normally Voiding: no voiding problems Passing Gas:: Yes Diet Tolerance:: regular diet Lochia:: Moderate Feeding Type:: breast feeding Physical Exam Constitutional WD/WN, vitals as above Respiratory normal respiratory effort; no respiratory distress and no labored breathing Gastrointestinal (Abdomen) Inspection/Auscultation: abdomen normal to inspection; abdomen not distended Percussion/Palpation: abdomen soft; abdomen nontender, no guarding and abdomen not rigid Genitourinary OB Exam Abdomen: + fundal height Fundus: + firm and + relation to umbilicus (Below); not tender or not boggy Results & Data ([facility]) Vital Signs (Past 12 Hours) Vital Signs Temp Pulse Resp BP Pulse Ox 04/13/21 07:35 36.6 C 76 16 94/61 L 98 04/12/21 23:19 36.6 C 60 16 91/53 L 95
[2021-04-13] MEDS: DOCUSATE SODIUM 100 MG CAP PO SCH (08:01)
[2021-04-13] MEDS: PRENATAL VITAMIN 1 TAB PO SCH (08:01)
[2021-04-13 08:12] LABS: Hematocrit (blood only) 30.4 % (37-47); Hemoglobin 10.1 g/dL (12.0-16.0)
== END 2021-04-13 10:10 | disposition home or self-care (01) | DRG 807 ==
LOC: OPB 03:53 → 4S1 03:56 → 4S2 13:00